=== PATIENT | female | born 1955 | race Caucasian/White ===

== ENCOUNTER 2024-02-27 07:30 | Outpatient (RCR) | payer MEDICARE, OTHER, SELFPAY | END 2024-05-14 14:25 | disposition home or self-care (01) | PROVIDERS: PCP Family Medicine; Visit Provider Family Medicine | DX: M25.511 Pain in right shoulder (principal); Z51.89 Encounter for other specified aftercare | CPT/HCPCS: 97012; 97110; 97162 ==

== ENCOUNTER 2024-04-25 13:30 | Outpatient (CLI) | payer MEDICARE, OTHER, SELFPAY ==
--- NOTE | 2024-04-25 14:00 | CRLHL7_ITS ---
For Patients: As a result of the Century Cures Act, medical imaging exams and procedure reports are released immediately into your electronic medical record. You may view this report before your referring provider. If you have questions, please contact your health care provider. INDICATION: Endometrial carcinoma staging TECHNIQUE: CT chest, abdomen and pelvis acquired with 132 cc Isovue 370 IV contrast and water oral preparation. COMPARISON: CT chest and pelvis 02/19/2024. FINDINGS: CHEST Lungs and pleura: The majority of the previously noted pulmonary nodules are no longer seen. There is a 4 millimeter nodule along the right minor fissure (3/43), which is similar compared to prior and may represent an intra fissural lymph node. There is a 2 millimeter nodule in the right lower lobe (3/52), previously 7 millimeters. Heart and vasculature: Heart size is normal. Thoracic aorta and pulmonary artery are normal in caliber. Lymph node/mediastinum: No mediastinal, hilar, or axillary adenopathy. Chest wall: Right chest wall port catheter with tip at the superior cavoatrial junction. Bones: No suspicious bone lesions. ABDOMEN AND PELVIS: Liver: Previously noted hypodense lesion in segment 2 is no longer seen. Gallbladder and bile ducts: Cholelithiasis without evidence of cholecystitis. No biliary ductal dilation. Pancreas: Unremarkable. Spleen: Decreased conspicuity of peripheral hyperdense lesion in the anterior spleen measuring 0.4 centimeters (2/141), previously 1.1 centimeters. Adrenal glands: Unremarkable. Kidneys: Bilateral subcentimeter hypodense lesions, likely cysts. GI tract: Small hiatal hernia. No obstruction. Colonic diverticulosis without diverticulitis. Normal appendix. Vasculature: Mild aortoiliac atherosclerosis. Mesenteric arteries are patent. Lymph nodes: No lymphadenopathy. Omentum/peritoneum/retroperitoneum/abdominal wall: Similar nonspecific stranding at the mesenteric root. Pelvic organs: Heterogeneous appearance of the uterus with mild thickening of the endometrium. Calcification in the left ovary as before. Bones: Moderate degenerative disease of lumbar spine. Avascular necrosis of the left femoral head. Severe degenerative changes in the right femoral head, which may be related to avascular necrosis. IMPRESSION: History of endometrial carcinoma. Compared to 02/19/2024: Decreased metastatic disease throughout the chest, abdomen, and pelvis with markedly decreased number of metastatic lesions in the lungs with only 2 remaining nodules visualized. Previously noted hepatic lesion is no longer seen and the peripheral splenic lesion is decreased in size. Similar heterogeneous appearance of the uterus, likely related to endometrial carcinoma. Avascular necrosis of the left femoral head and severe degenerative changes of the right femoral head, which may be related to avascular necrosis. Please note that all CT scans at this facility use dose modulation, iterative reconstruction, and/or weight-based dosing when appropriate to reduce radiation dose to as low as reasonably achievable. Dictated by Aysha Baca MD @ 05/03/2024 3:02:13 PM (Electronically Signed)
== END 2024-04-25 13:31 | disposition home or self-care (01) ==
LOC: CT 13:33
PROVIDERS: PCP Family Medicine; Visit Provider Nurse Practitioner Obstetrics & Gynecology
DX: C54.1 Malignant neoplasm of endometrium (principal); R91.8 Other nonspecific abnormal finding of lung field
CPT/HCPCS: 71260; 74177; Q9967

== ENCOUNTER 2024-11-06 07:50 | Outpatient (CLI) | payer MEDICARE, OTHER, SELFPAY ==
--- NOTE | 2024-11-06 08:00 | CRLHL7_ITS ---
For Patients: As a result of the 21st Century Cures Act, medical imaging exams and procedure reports are released immediately into your electronic medical record. You may view this report before your referring provider. If you have questions, please contact your health care provider. INDICATION: SOB with activity, hx of endometrial cancer COMPARISON: 02/19/2024 TECHNIQUE: CT volumetric acquisition was performed of the thorax during intravenous infusion of 95 cc Isovue 370 nonionic intravenous contrast. Please note that all CT scans at this facility use dose modulation, iterative reconstruction, and/or weight-based dosing when appropriate to reduce radiation dose to as low as reasonably achievable. FINDINGS: Bilateral pulmonary emboli are present involving all lobes of the lung bilaterally. The main pulmonary arteries are patent. RV/LV ratio less than 1. No reflux of contrast into the IVC. No adenopathy. No infiltrate. No infarct or pleural effusion. No CHF. Resolution of bilateral pulmonary nodules with a residual scar-like density in the right lung measuring 6 millimeters. No adrenal nodule. No fracture or intrinsic osseous lesion. IMPRESSION: Bilateral pulmonary emboli. Awaiting callback from referring provider at the time of dictation. Resolution of most of the pulmonary nodules. Please note that all CT scans at this facility use dose modulation, iterative reconstruction, and/or weight-based dosing when appropriate to reduce radiation dose to as low as reasonably achievable. Dictated by Moo Leyva MD @ 11/06/2024 11:00:36 AM (Electronically Signed)
[2024-11-06 08:49] LABS: Creatinine* 0.8 mg/dL (0.5-1.5); Estimated Glomerular Filt Rate 79 ml/min
== END 2024-11-06 07:51 | disposition home or self-care (01) ==
LOC: CT 07:53
PROVIDERS: PCP Family Medicine; Visit Provider Nurse Practitioner Obstetrics & Gynecology
DX: R06.02 Shortness of breath (principal); I26.99 Other pulmonary embolism without acute cor pulmonale; R91.8 Other nonspecific abnormal finding of lung field; C54.1 Malignant neoplasm of endometrium
CPT/HCPCS: 36415; 71275; 82565; Q9967

== ENCOUNTER 2024-12-25 13:00 | Outpatient (RCR) | payer MEDICARE, OTHER, SELFPAY | END 2025-01-27 09:49 | disposition home or self-care (01) | PROVIDERS: PCP Family Medicine; Visit Provider Nurse Practitioner Obstetrics & Gynecology | DX: R06.09 Other forms of dyspnea (principal); R53.83 Other fatigue; Z51.89 Encounter for other specified aftercare | CPT/HCPCS: 97032; 97110; 97112; 97140; 97162; 97530 ==

== ENCOUNTER 2025-03-17 13:45 | Outpatient (RCR) | payer MEDICARE, OTHER, SELFPAY | END 2025-04-10 13:18 | disposition home or self-care (01) | PROVIDERS: PCP Family Medicine; Visit Provider Family Medicine | DX: M50.322 Other cervical disc degeneration at C5-C6 level (principal); M50.323 Other cervical disc degeneration at C6-C7 level; M25.78 Osteophyte, vertebrae; Z51.89 Encounter for other specified aftercare | CPT/HCPCS: 97110; 97112; 97162 ==